=== PATIENT | female | born 1985 | race African-American/Black ===

== ENCOUNTER 2016-10-09 14:14 | Outpatient (CLI) | payer OTHER ==
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
== END 2016-10-09 14:15 | disposition home or self-care (01) ==
LOC: MADCT 14:14
PROVIDERS: ATTEND Family Medicine
DX: S00.03XA Contusion of scalp, initial encounter (principal); G44.319 Acute post-traumatic headache, not intractable
CPT/HCPCS: 70450

== ENCOUNTER 2016-11-11 15:20 | Emergency (ER) | payer OTHER | END 2016-11-11 16:35 | disposition home or self-care (01) | LOC: MADERS 15:20 | DX: S09.90XA Unspecified injury of head, initial encounter (principal); M24.541 Contracture, right hand; X58.XXXA Exposure to other specified factors, initial encounter; Y92.69 Other specified industrial and construction area as the place of occurrence of the external cause; Y99.0 Civilian activity done for income or pay | CPT/HCPCS: 99283 ==

== ENCOUNTER 2022-11-03 19:24 | Emergency (ER) | payer OTHER ==
[2022-11-03] MEDS ORDERED: Lidocaine Viscous Sol 2% 15 ml UD Cup ONE (20:00)
[2022-11-03] MEDS ORDERED: Mag-Al Plus 1200 MG/1200 MG/120 MG/30 ML UDCUP ONE (20:00)
[2022-11-03] MEDS ORDERED: Sucralfate 1 GM TAB ONE (20:39)
[2022-11-03] MEDS ORDERED: Ondansetron ODT 4 MG TAB ONE (20:39)
== END 2022-11-03 21:50 | disposition home or self-care (01) ==
LOC: MADERS 19:24
DX: K21.9 Gastro-esophageal reflux disease without esophagitis (principal); E11.9 Type 2 diabetes mellitus without complications; I10 Essential (primary) hypertension; J45.909 Unspecified asthma, uncomplicated; Z79.899 Other long term (current) drug therapy
CPT/HCPCS: 99283; Q0162

== ENCOUNTER 2023-12-12 21:26 | Emergency (ER) | payer MEDICARE ==
[2023-12-12 22:37] LABS: Bilirubin Negative (Negative); Blood, Urine Negative (Negative); Clarity Clear (Clear); Glucose, Urine (Dipstick) >=1000 mg/dL (Negative); Ketone, Urine Negative (Negative); Leukocyte Negative (Negative); Nitrite Negative (Negative); Pregnancy Test - Urine (BHCG) Negative (Negative); Pregu Control Background? CLEAR/WHITE (CLR/WHITE); Pregu Control Bar Appear? YES (CONTROL BAR); Protein, Urine (Dipstick) Negative (Neg-Trace); Specific Gravity 1.026 (1.002-1.036); pH, Urine 5.5 (5.0-9.0)
[2023-12-12 22:41] LABS: CAUTI Indications for Culture Pelvic or flank pain; RBC/HPF None Seen HPF (0-3); Specific Gravity, Urine 1.026 (1.002-1.036); WBC/HPF 0-3 HPF (0-3)
[2023-12-12 22:42] LABS: Urine Culture Reflex No No
[2023-12-12 22:42] LABS: #Basophils 0.1 thou/uL (0.0-0.2); #Eosinphils 0.2 thou/uL (0.0-0.7); #Lymphocytes 2.2 thou/uL (1.20-3.40); #Monocytes 0.5 thou/uL (0.11-0.59); %Basophils 0.8 % (0.0-1.0); %Eosinophils 3.2 % (0.0-10.0); %Lymphocytes 31.6 % (21.0-51.0); %Monocytes 7.4 % (0.0-10.0); %Neutrophils 56.9 % (42.0-75.0); Hematocrit 42.5 % (36.0-47.0); Hemoglobin 12.6 g/dL (12.0-16.0); Mean Corpuscular HGB CONC 29.7 g/dL (32.0-36.0); Mean Corpuscular Hemoglobin 24.9 pg (27.0-31.0); Mean Corpuscular Volume 83.9 fl (78.0-98.0); Mean Platelet Volume 9.6 fL (7.4-10.4); Platelet Count 232 10x3/uL (130-400); RBC Distribution Width 14.1 % (11.5-14.5); Red Blood Cell (RBC) Count 5.06 mill/uL (4.20-5.40)
[2023-12-12] MEDS ORDERED: Ketorolac Tromethamine 30 MG (1 mL) VIAL ONE (22:55)
[2023-12-12] MEDS ORDERED: Lactated Ringer's 1,000 ML ONE (22:55)
[2023-12-12] MEDS ORDERED: Morphine 4 MG/ML VIAL ONE (22:55)
[2023-12-12 23:09] LABS: ALT (SGPT) 14 U/L (8-55); AST (SGOT) 10 U/L (5-34); Albumin 4.1 g/dL (3.5-5.0); Alkaline Phosphatase 79 U/L (40-110); Anion Gap 15 mmol/L (10-20); BUN (Urea Nitrogen) 12 mg/dL (7.0-18.7); Bilirubin, Total 0.2 mg/dL (0.2-1.2); Calc. Creatinine Clearance 0 mL/min (70-130); Calcium 9.3 mg/dL (7.8-10.44); Carbon Dioxide 21 mmol/L (22-29); Chloride 105 mmol/L (98-107); Estimated GFR 89; Globulin 3.1 g/dL (2.4-3.5); Glucose 121 mg/dL (70-105); Lipase 30 U/L (8-78); Potassium 3.4 mmol/L (3.5-5.1); Protein, Total 7.2 g/dL (6.0-8.3); Sodium 138 mmol/L (136-145)
[2023-12-13] MEDS ORDERED: Potassium Chloride 20 MEQ TAB ONE (00:10)
[2023-12-13] MEDS ORDERED: Lidocaine 4% Patch ONE (00:10)
== END 2023-12-13 00:34 | disposition home or self-care (01) ==
LOC: MADERS 21:26
DX: R10.11 Right upper quadrant pain (principal); K21.9 Gastro-esophageal reflux disease without esophagitis; I10 Essential (primary) hypertension; E11.40 Type 2 diabetes mellitus with diabetic neuropathy, unspecified
CPT/HCPCS: 74176; 80053; 81001; 81025; 83690; 85025; 94760; 96361; 96374; 96375; 99284; J1885; J2270; J7120

== ENCOUNTER 2024-03-28 19:41 | Emergency (ER) | payer MEDICARE ==
[2024-03-28] MEDS ORDERED: Fluorescein Opthalmic Strip ONE (19:59)
[2024-03-28] MEDS ORDERED: Tetracaine 0.5% PF 4 ML BOT ONE (20:00)
== END 2024-03-28 20:53 | disposition home or self-care (01) ==
LOC: MADERS 19:41
DX: H10.9 Unspecified conjunctivitis (principal); I10 Essential (primary) hypertension; E11.40 Type 2 diabetes mellitus with diabetic neuropathy, unspecified; Z55.6 Problems related to health literacy
CPT/HCPCS: 99283

== ENCOUNTER 2025-06-06 21:28 | Emergency (ER) | payer MEDICARE ==
[~2025-06-06 21:28] MED LIST: Iopamidol 370 76% 100 ML VIAL ONE
[2025-06-06] MEDS ORDERED: Pantoprazole 40 MG VIAL ONE (22:29)
[2025-06-06] MEDS ORDERED: Ketorolac Tromethamine 30 MG (1 mL) VIAL ONE (22:29)
[2025-06-06] MEDS ORDERED: Ondansetron PF 4 MG/2 ML Vial ONE (22:29)
[2025-06-06 22:35] LABS: Hematocrit 46.0 % (36.0-47.0); Hemoglobin 14.0 g/dL (12.0-16.0); Mean Corpuscular Hemoglobin 26.6 pg (27.0-31.0); Mean Corpuscular Volume 87.6 fl (78.0-98.0); Platelet Count 323 10x3/uL (130-400); Red Blood Cell (RBC) Count 5.25 mill/uL (4.20-5.40); White Blood Cell (WBC) Count 5.7 10x3/uL (4.8-10.8)
[2025-06-06 22:41] LABS: BHCG - Serum Negative (NEGATIVE); Pregs Control Background? CLEAR/WHITE (CLR/WHITE); Pregs Control Bar Appear? YES (CONTROL BAR)
[2025-06-06 22:44] LABS: MDiff Complete? YES
[2025-06-06 22:52] LABS: ALT (SGPT) 13 U/L (Less than 34); AST (SGOT) 22 U/L (11-34); Albumin 4.2 g/dL (3.1-4.5); Alkaline Phosphatase 69 U/L (40-110); Anion Gap 16 mmol/L (10-20); BUN (Urea Nitrogen) 13 mg/dL (7.0-18.7); Bilirubin, Total 0.2 mg/dL (0.3-1.2); Calc. Creatinine Clearance 0 mL/min (70-130); Calcium 8.9 mg/dL (7.8-10.44); Carbon Dioxide 20 mmol/L (22-29); Chloride 108 mmol/L (98-107); Globulin 3.8 g/dL (2.4-3.5); Glucose 160 mg/dL (70-105); Lipase 57 U/L (8-78); Potassium 3.7 mmol/L (3.5-5.1); Sodium 140 mmol/L (136-145)
[2025-06-07] MEDS ORDERED: Acetaminophen 500 MG TAB ONE (00:34)
[2025-06-07] MEDS ORDERED: Mag-Al 1200 mg/1200 mg/30 ML UDCUP ONE (00:34)
[2025-06-07] MEDS ORDERED: Lidocaine Viscous Sol 2% 15 ml UD Cup ONE (00:34)
== END 2025-06-07 00:46 | disposition home or self-care (01) ==
LOC: MADERS 21:28
DX: R10.13 Epigastric pain (principal); R11.2 Nausea with vomiting, unspecified; R19.7 Diarrhea, unspecified; J06.9 Acute upper respiratory infection, unspecified; I10 Essential (primary) hypertension; E11.40 Type 2 diabetes mellitus with diabetic neuropathy, unspecified
CPT/HCPCS: 71045; 74177; 80053; 83690; 84703; 85025; 87428; 96361; 96374; 96375; J1885; J2405; J2470; J7030; Q9967